=== PATIENT | female | born 1975 | race Caucasian/White ===

== ENCOUNTER 2016-08-06 14:02 | Emergency (ER) | payer MEDICAID, OTHER ==
[~2016-08-06] VITALS: Ht 175.3 cm; Wt 109.4 kg
[2016-08-06 14:05] VITALS: Ht 175.3 cm; Wt 109.4 kg
--- OUTSIDE RECORDS SUMMARY | 2016-08-06 14:08 | XMS REPORT ---
Author Author Jase Garnett Organization [employer] Address Unknown Phone Unavailable Care Team Providers Care Systems Development Manager Name Role Phone Jase Garnett CP Unavailable Allergies, Adverse Reactions, Alerts Substance Reaction Event Type Phenergan irritation, psych Drug Allergy Problems Problem Type Condition Code Onset Dates Condition Status Assessment Routine adult health maintenance Z00.00 Active Assessment Lumbago M54.5 Active Assessment Uncontrolled hypertension I10 Active Assessment Scabies B86 Active Medications Medication Code System Code Instructions Start Date End Date Status Dosage Premarin [facility] [address]-71 1.25 MG Orally daily 1 tab(s) Ibuprofen [facility] [address]-04 200 MG Orally every 6 hrs 1 tablet as needed Lisinopril [facility] [address]-58 20 mg Orally Once a day Jan 10, 2016 1 tablet Permethrin [facility] [address]-91 5 % Externally as directed Jan 10, 2016 Jan 12, 2016 as directed tylenol ND 0 Oral 1 tab Procedures Procedure Coding System Code Date CBC with diff CPT-4 68494 Jan 10, 2016 Hemoglobin A1C CPT-4 33130 Jan 10, 2016 Comp metabolic panel CPT-4 96235 Jan 10, 2016 TSH CPT-4 31813 Jan 10, 2016 Lipid panel CPT-4 61384 Jan 10, 2016 Office visit new level 3 CPT-4 81680 Jan 10, 2016 Vital Signs Date/Time: Jan 10, 2016 Height 68.25 in Weight 253.3 lbs Temperature 97.1 F Cardiac Monitoring Heart Rate 70 /min Blood Pressure Diastolic 90 mm Hg Blood Pressure Systolic 166 mm Hg BMI 38.23 Index Results No Known Results Summary Purpose [employer] Submission
--- OUTSIDE RECORDS SUMMARY | 2016-08-06 14:08 | XMS REPORT | Referral Summary ---
Author Author [facility] Organization [facility] Address Unknown Phone Unavailable Care Team Providers Care Fitness Teacher Name Role Phone No PCP, Pt States Primary Care Physician [phone] Encounter VC Date(s): 05/28/16 - 05/28/16 [facility] [address] [place] [address] Discharge Disposition: Against Medical Advice Attending Physician: Lew Roche MD Admitting Physician: Lew Roche MD Vital Signs Most recent to 1 oldest [Reference Range]: Temperature Oral 36.8 degC [35.8-37.3 degC] (05/28/16 6:31 AM) Peripheral Pulse 68 bpm Rate [60-100 bpm] (05/28/16 6:31 AM) Heart Rate Monitored 68 bpm [60-100 bpm] (05/28/16 5:24 AM) Respiratory Rate 10 br/min [14-20 br/min] *LOW* (05/28/16 6:51 AM) Blood Pressure 132/86 mmHg [90-140/60-90 mmHg] (05/28/16 6:31 AM) Mean Arterial 128 mmHg Pressure, Cuff (05/28/16 5:24 AM) SpO2 97 % (05/28/16 6:51 AM) Problem List Condition Effective Dates Status Health Status Informant Back pain(Confirmed) Active patient DDD (degenerative Active patient disc disease), lumbar(Confirmed) Sacral Active patient fracture(Confirmed) HTN Active patient (hypertension)(Confi rmed) Kidney Active patient stones(Confirmed) Obesity(Confirmed) Active patient Restless leg Active patient syndrome(Confirmed) Tobacco Active patient user(Confirmed) Allergies, Adverse Reactions, Alerts Substance Reaction Severity Status Phenergan Anxiety Mild Active Medications Premarin 1.25 mg oral tablet 1.25 mg 1 tabs, Oral, Daily, 0 Refill(s) Start Date: 05/28/16 Status: Ordered Results Hematology Most recent to 1 oldest [Reference Range]: WBC [4.8-10.8 7.4 10*3/uL 10*3/uL] (05/28/16 3:48 AM) RBC [4.00-5.20] 4.56 (05/28/16 3:48 AM) Hgb [12.0-16.0 14.4 gm/dL gm/dL] (05/28/16 3:48 AM) Hct [37.0-47.0 %] 43.0 % (05/28/16 3:48 AM) MCV [82.0-99.0 fL] 94.3 fL (05/28/16 3:48 AM) MCH [27.0-32.0 pg] 31.6 pg (05/28/16 3:48 AM) MCHC [32.0-36.0 33.5 gm/dL gm/dL] (05/28/16 3:48 AM) RDW [11.5-14.5 %] 12.3 % (05/28/16 3:48 AM) Platelet [150-400 231 10*3/uL 10*3/uL] (05/28/16 3:48 AM) MPV [9.4-12.4 fL] 11.9 fL (05/28/16 3:48 AM) Immature 0.3 % Granulocytes (05/28/16 3:48 AM) [0.0-1.0 %] Neutrophils [51-75 67 % %] (05/28/16 3:48 AM) Lymphocytes [20-46 25 % %] (05/28/16 3:48 AM) Monocytes [4-11 %] 6 % (05/28/16 3:48 AM) Eosinophils [0-4 %] 1 % (05/28/16 3:48 AM) Basophils [0-2 %] 0 % (05/28/16 3:48 AM) Neutro Absolute 4.91 [1.90-7.00] (05/28/16 3:48 AM) Lymph Absolute 1.85 [0.80-3.30] (05/28/16 3:48 AM) Wilson Absolute 0.46 [0.30-1.00] (05/28/16 3:48 AM) Eos Absolute 0.10 [0.00-0.50] (05/28/16 3:48 AM) Baso Absolute 0.03 [0.00-0.20] (05/28/16 3:48 AM) Nucleated RBC 0.0 /100 WBC Automated [0 /100 (05/28/16 3:48 AM) WBC] Chemistry Most recent to 1 oldest [Reference Range]: Sodium Lvl [136-144 138 mEq/L mEq/L] (05/28/16 3:48 AM) Potassium Lvl 3.9 mEq/L [3.6-5.1 mEq/L] (05/28/16 3:48 AM) Chloride [99-109 106 mEq/L mEq/L] (05/28/16 3:48 AM) CO2 [22-32 mEq/L] 23 mEq/L (05/28/16 3:48 AM) AGAP [3-20] 9 (05/28/16 3:48 AM) BUN [4-20 mg/dL] 13 mg/dL (05/28/16 3:48 AM) Glucose Lvl [70-100 101 mg/dL mg/dL] *HI* (05/28/16 3:48 AM) Creatinine Lvl 0.64 mg/dL [0.44-1.03 mg/dL] (05/28/16 3:48 AM) eGFR [>60] >60 1 (05/28/16 3:48 AM) Calcium Lvl 9.0 mg/dL [8.6-10.0 mg/dL] (05/28/16 3:48 AM) Albumin Lvl [3.5-4.8 3.4 gm/dL gm/dL] *LOW* (05/28/16 3:48 AM) Total Protein 6.3 gm/dL [6.1-7.9 gm/dL] (05/28/16 3:48 AM) Globulin [1.9-4.3 2.9 gm/dL gm/dL] (05/28/16 3:48 AM) ALT [14-54] - 2 (05/28/16 3:48 AM) AST [15-41 U/L] 19 U/L (05/28/16 3:48 AM) Alk Phos [26-104 76 U/L U/L] (05/28/16 3:48 AM) Bili Total [0.2-1.2] - 3 (05/28/16 3:48 AM) Troponin [<0.06 <0.05 ng/mL ng/mL] (05/28/16 3:48 AM) 1Result Comment: Multiply eGFR results by 1.21 for race. 2Result Comment: QNS, notified VASYL Zhang 05/28/2016 04:54 3Result Comment: QNS, notified VASYL Zhang 05/28/2016 04:54 Immunizations Given and Recorded Vaccine Date Status Refusal Reason influenza virus vaccine, live 04/07/13 Given pneumococcal 23-polyvalent vaccine 05/29/16 Given Procedures Procedure Date Related Diagnosis Body Site Carpal tunnel release Cholecystectomy Lithotripsy Tubal ligation Social History Social History Type Response Smoking Status Current every day smoker; Type: Cigarettes; Tobacco use per day: 1 Pack Assessment and Plan No data available for this section
--- OUTSIDE RECORDS SUMMARY | 2016-08-06 14:09 | XMS REPORT | Continuity of Care Document ---
Author Author [facility] Organization [facility] Address Unknown Phone Unavailable Allergies Active Description Code Type Severity Reaction Onset Reported/Identified Relationship to Patient Clinical Status Yes No Allergy Information Drug Allergy N/A N/A 04/06/2013 Yes Phenergan Drug Allergy N/A Adverse Reaction 04/07/2013 Yes promethazine HCl promethazine HCl Drug Allergy Unknown "GO CRAZY" 03/30/2015 Yes promethazine HCl promethazine HCl Drug Allergy Unknown "GO CRAZY" 03/30/2015 Yes promethazine HCl promethazine HCl Drug Allergy Moderate " GO CRAZY" 11/05/2015 Yes promethazine HCl promethazine HCl Drug Allergy Moderate " GO CRAZY" 11/05/2015 Yes promethazine promethazine Drug Allergy Moderate "go crazy" 11/09/2015 Yes promethazine promethazine Drug Allergy Moderate "go crazy" 11/09/2015 Medications Problems Date Dx Coded Attending Type Code Diagnosis Diagnosed By 01/26/2012 Keagan Saenz MDChin) Cecille Crowe 443.9 PERIPH VASCULAR DIS NOS 02/10/2012 Fausto Pitts DO Final 305.1 TOBACCO USE DISORDER 02/10/2012 Fausto Pitts DO Final 338.19 ACUTE PAIN NEC 02/10/2012 Fausto Pitts DO Final 338.29 CHRONIC PAIN NEC 02/10/2012 Fausto Pitts DO Final 724.2 LUMBAGO 02/10/2012 Fausto Pitts DO Admitting 959.19 TRUNK INJURY NEC 03/01/2012 Lloyd Grant DO Final 719.45 JOINT PAIN-PELVIS 03/01/2012 Lloyd Grant DO Final 729.5 PAIN IN LIMB 03/01/2012 Lloyd Grant DO 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 05/04/2012 Donovan Gonzalez MD Final 305.1 TOBACCO USE DISORDER 05/04/2012 Donovan Gonzalez MD Final 338.19 ACUTE PAIN NEC 05/04/2012 Donovan Gonzalez MD Admitting 719.45 JOINT PAIN-PELVIS 05/04/2012 Donovan Gonzalez MD Final 724.2 LUMBAGO 08/06/2012 hBavna KILGORE, Ruiz J F 272.4 HYPERLIPIDEMIA NEC/NOS 08/06/2012 Ruiz Huggins MD J F 305.1 TOBACCO USE DISORDER 08/06/2012 Wilson Huggins MDeb J F 530.81 ESOPHAGEAL REFLUX 08/06/2012 Ruiz Huggins MD J F 724.2 LUMBAGO 08/06/2012 Ruiz Huggins MD J A 786.50 CHEST PAIN NOS 08/06/2012 Ruiz Huggins MD J F 786.59 CHEST PAIN NEC 04/06/2013 Erin Potter MD Final 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 04/06/2013 Erin Potter MD Final 338.29 CHRONIC PAIN NEC 04/06/2013 Erin Potter MD Final 592.0 KIDNEY CALCULUS 04/06/2013 Erin Potter MD Final 620.9 NONINFL DIS OV/FALL NOS 04/06/2013 Erin Potter MD Final 724.2 LUMBAGO 04/06/2013 Erin Potter MD Final 789.09 ABDOMINAL PAIN-SITE NEC 04/06/2013 Erin Potter MD Final V04.81 INFLUENZA VACCINE 04/06/2013 Erin Potter MD Final V65.2 PERSON FEIGNING ILLNESS 09/14/2013 Denzel Ricardo MD Final 338.29 CHRONIC PAIN NEC 09/14/2013 Denzel Ricardo MD Final 401.9 HYPERTENSION NOS 09/14/2013 Denzel Ricardo MD Final 724.2 LUMBAGO 09/14/2013 Denzel Ricardo MD Admitting 724.5 BACKACHE NOS 09/14/2013 Denzel Ricardo MD Final V68.1 ISSUE REPEAT PRESCRIPT Procedures Results Test Result Range TROPONIN I BEDSIDE - 12/25/11 20:58 METHOD Bedside TROPONIN I < 0.04 ng/mL < 0.11 CHEM/HEM PROFILE-BEDSIDE - 12/25/11 21:00 POTASSIUM 4.1 mmol/L 3.5-5.3 METHOD Bedside ANION GAP 17 mmol/L 10-20 METHOD Bedside GLUCOSE 101 mg/dL 70-99 BLOOD UREA NITROGEN 7 mg/dL 7-20 CREATININE 0.8 mg/dL 0.6-1.0 HEMOGLOBIN 17.0 gm/dL 12.0-16.0 HEMATOCRIT 50.0 % 37.0-47.0 SODIUM 140 mmol/L 135-148 CHLORIDE 105 mmol/L 98-110 CARBON DIOXIDE 23 mmol/L 21-32 CALCIUM IONIZED 4.5 mg/dL 4.5-5.3 CBC W/DIFF - 12/25/11 21:10 EOSINOPHIL # 0.2 k/cumm 0.1-0.5 EOSINOPHIL % 2 % 2-4 GRANULOCYTE # 7.1 k/cumm 2.0-9.0 GRANULOCYTE % 69 % 50-75 LYMPHOCYTE # 2.4 k/cumm 1.0-4.0 LYMPHOCYTE % 24 % 20-30 MEAN CELL HGB 29.5 pg 27.0-33.0 MEAN CELL HGB CONCENTRATION 33.1 g/dl 32.0-36.0 MEAN CELL VOLUME 89.0 fl 80.0-100.0 MONOCYTE # 0.5 k/cumm 0.1-1.0 MONOCYTE % 5 % 4-6 RED BLOOD CELL 5.56 m/cumm 4.00-6.00 RED CELL DISTRIBUTION WIDTH 12.6 % 11.0- 15.6 WHITE BLOOD CELL 10.2 k/cumm 5.0-10.0 HEMOGLOBIN 16.4 gm/dL 12.0-16.0 HEMATOCRIT 49.5 % 37.0-47.0 PLATELET COUNT 289 k/cumm 150-450 D-DIMER QUANT - 12/25/11 21:10 D-DIMER QUANT 186 ng/mL 0-229 CBC - 08/06/12 20:40 MEAN CELL HGB 29.3 pg 27.0-33.0 MEAN CELL HGB CONCENTRATION 31.6 g/dl 32.0-36.0 MEAN CELL VOLUME 92.5 fl 80.0-100.0 RED BLOOD CELL 4.90 m/cumm 4.00-6.00 RED CELL DISTRIBUTION WIDTH 12.9 % 11.0- 15.6 WHITE BLOOD CELL 6.1 k/cumm 5.0-10.0 HEMOGLOBIN 14.4 gm/dL 12.0-16.0 HEMATOCRIT 45.4 % 37.0-47.0 PLATELET COUNT 228 k/cumm 150-450 METABOLIC PANEL, BASIC - 08/06/12 20:40 POTASSIUM 4.0 mmol/L 3.5-5.3 EST GFR (MDRD) > 60 mL/min > 59 ANION GAP 6 mmol/L 5-15 EST CrCl (CG) > 60 mL/min > 59 GLUCOSE 82 mg/dL 70-99 CALCIUM 8.5 mg/dL 8.5-10.1 BLOOD UREA NITROGEN 12 mg/dL 7-20 CREATININE 0.9 mg/dL 0.6-1.0 SODIUM 145 mmol/L 135-148 CHLORIDE 108 mmol/L 98-110 CARBON DIOXIDE 31 mmol/L 21-32 TROPONIN I BEDSIDE - 08/06/12 20:50 METHOD Bedside TROPONIN I < 0.04 ng/mL < 0.11 MRSA SURVEILLANCE SCREEN - 08/06/12 23:55 Uncategorized METABOLIC PANEL, COMPREHN - 08/07/12 02:05 POTASSIUM 3.8 mmol/L 3.5-5.3 EST GFR (MDRD) > 60 mL/min > 59 ANION GAP 7 mmol/L 5-15 EST CrCl (CG) > 60 mL/min > 59 GLUCOSE 89 mg/dL 70-99 CALCIUM 8.0 mg/dL 8.5-10.1 BLOOD UREA NITROGEN 13 mg/dL 7-20 CREATININE 0.8 mg/dL 0.6-1.0 SODIUM 142 mmol/L 135-148 CHLORIDE 108 mmol/L 98-110 AST/SGOT 11 Units/L 10-37 ALT/SGPT 19 Units/L < 66 CARBON DIOXIDE 27 mmol/L 21-32 TOTAL PROTEIN 6.2 gm/dL 6.4-8.2 ALBUMIN 3.2 gm/dL 3.4-5.0 BILI TOTAL 0.2 mg/dL 0.0-1.0 ALKALINE PHOSPHATASE TOTAL 69 Units/L 50- 136 CREATINE KINASE (CK/CPK) - 08/07/12 02:05 CREATINE KINASE (CK/CPK) 43 Units/L < 193 CK MB - 08/07/12 02:05 CK MB < 0.5 ng/mL < 4.0 MAGNESIUM - 08/07/12 02:05 MAGNESIUM 1.6 mg/dL 1.8-2.4 LIPID PANEL - 08/07/12 02:05 CHOLESTEROL/HDL RATIO 6.7 < 5.0 LDL CHOLESTEROL 153 mg/dL < 100 VLDL CHOLESTEROL 30 mg/dL < 30 TRIGLYCERIDES 150 mg/dL < 150 CHOLESTEROL 215 mg/dL < 200 HDL CHOLESTEROL 32 mg/dL > 39 CREATINE KINASE (CK/CPK) - 08/07/12 02:05 CREATINE KINASE (CK/CPK) 42 Units/L < 193 CK MB - 08/07/12 02:05 CK MB < 0.5 ng/mL < 4.0 TROPONIN I - 08/07/12 02:05 TROPONIN I < 0.02 ng/mL < 0.07 B-TYPE NATRIURETIC PEPTIDE - 08/07/12 02:05 B-TYPE NATRIURETIC PEPTIDE 9 pg/mL < 100 HEMOGLOBIN A1C - 08/07/12 02:05 HEMOGLOBIN A1C 5.7 % < 5.7 URINALYSIS, ROUTINE - 08/07/12 06:25 UA LEUKOCYTE ESTERASE DIPSTICK NEGATIVE NEGATIVE UA NITRITE DIPSTICK NEGATIVE NEGATIVE UA PROTEIN DIPSTICK NEGATIVE NEGATIVE UA GLUCOSE DIPSTICK NEGATIVE NEGATIVE UA KETONE DIPSTICK NEGATIVE NEGATIVE UA UROBILINOGEN DIPSTICK NORMAL NORMAL UA BILIRUBIN DIPSTICK NEGATIVE NEGATIVE UA BLOOD DIPSTICK NEGATIVE NEGATIVE UA VOLUME FOR EXAM 12.0 mL (12mL STD) UA SPECIFIC GRAVITY 1.022 1.015-1.025 UR PH 5.0 5.0-7.0 CREATINE KINASE (CK/CPK) - 08/07/12 09:32 CREATINE KINASE (CK/CPK) 52 Units/L < 193 CK MB - 08/07/12 09:32 CK MB < 0.5 ng/mL < 4.0 TROPONIN I - 08/07/12 09:32 TROPONIN I < 0.02 ng/mL < 0.07 CBC W/DIFF - 11/04/13 21:00 EOSINOPHIL # 0.1 k/cumm 0.1-0.5 EOSINOPHIL % 2 % 2-4 GRANULOCYTE # 4.4 k/cumm 2.0-9.0 GRANULOCYTE % 64 % 50-75 LYMPHOCYTE # 2.0 k/cumm 1.0-4.0 LYMPHOCYTE % 30 % 20-30 MEAN CELL HGB 30.1 pg 27.0-33.0 MEAN CELL HGB CONCENTRATION 33.0 g/dL 32.0-37.0 MEAN CELL VOLUME 91.0 fl 80.0-100.0 MONOCYTE # 0.4 k/cumm 0.1-1.0 MONOCYTE % 5 % 4-6 RED BLOOD CELL 5.02 m/cumm 4.00-6.00 RED CELL DISTRIBUTION WIDTH 12.7 % 11.0- 15.6 WHITE BLOOD CELL 6.9 k/cumm 5.0-10.0 HEMOGLOBIN 15.1 gm/dL 12.0-16.0 HEMATOCRIT 45.7 % 37.0-47.0 PLATELET COUNT 228 k/cumm 150-400 CHEM/HEM PROFILE-BEDSIDE - 11/04/13 21:10 POTASSIUM 3.7 mmol/L 3.5-5.3 METHOD Bedside ANION GAP 13 mmol/L 10-20 METHOD Bedside GLUCOSE 101 mg/dL 70-99 BLOOD UREA NITROGEN 8 mg/dL 7-20 CREATININE 0.8 mg/dL 0.6-1.0 HEMOGLOBIN 15.3 gm/dL 12.0-16.0 HEMATOCRIT 45.0 % 37.0-47.0 SODIUM 139 mmol/L 135-148 CHLORIDE 100 mmol/L 98-110 CARBON DIOXIDE 30 mmol/L 21-32 CALCIUM IONIZED 4.8 mg/dL 4.5-5.3 URINALYSIS, ROUTINE - 11/04/13 21:15 UA LEUKOCYTE ESTERASE DIPSTICK NEGATIVE NEGATIVE UA NITRITE DIPSTICK NEGATIVE NEGATIVE UA PROTEIN DIPSTICK NEGATIVE NEGATIVE UA GLUCOSE DIPSTICK NEGATIVE NEGATIVE UA KETONE DIPSTICK NEGATIVE NEGATIVE UA UROBILINOGEN DIPSTICK NORMAL NORMAL UA BILIRUBIN DIPSTICK NEGATIVE NEGATIVE UA BLOOD DIPSTICK TRACE NEGATIVE UA COMMENT UA SPECIFIC GRAVITY 1.010 1.015-1.025 UR PH 5.0 5.0-7.0 UR TEST - 11/04/13 21:15 UR TEST NEGATIVE NEGATIVE UA MICROSCOPIC - 11/04/13 21:15 UA BACTERIA 1+ NEGATIVE UA EPITHELIAL CELLS 3+ epi/hpf 0 - 1+ UA RBC 0-3 rbc/hpf 0 - 3 UA VOLUME FOR EXAM 12.0 mL (12mL STD) UA WBC 2-5 wbc/hpf 0 - 5 CBC W/DIFF - 04/16/14 22:35 COMMENT REVIEWED GRANULOCYTE # 8.7 k/cumm 2.0-9.0 GRANULOCYTE % 89 % 50-75 LYMPHOCYTE # 0.6 k/cumm 1.0-4.0 LYMPHOCYTE % 6 % 20-30 MEAN CELL HGB 28.9 pg 27.0-33.0 MEAN CELL HGB CONCENTRATION 32.4 g/dL 32.0-37.0 MEAN CELL VOLUME 89.2 fl 80.0-100.0 MONOCYTE # 0.5 k/cumm 0.1-1.0 MONOCYTE % 5 % 4-6 RED BLOOD CELL 5.82 m/cumm 4.00-6.00 RED CELL DISTRIBUTION WIDTH 13.3 % 11.0- 15.6 WHITE BLOOD CELL 9.8 k/cumm 5.0-10.0 HEMOGLOBIN 16.8 gm/dL 12.0-16.0 HEMATOCRIT 51.9 % 37.0-47.0 PLATELET COUNT 241 k/cumm 150-400 HEPATIC FUNCTION PANEL - 04/16/14 22:35 BILI UNCONJUGATED 0.9 mg/dL 0.0-0.7 AST/SGOT 12 Units/L 10-37 ALT/SGPT 18 Units/L < 66 TOTAL PROTEIN 8.6 gm/dL 6.4-8.2 ALBUMIN 4.3 gm/dL 3.4-5.0 BILI TOTAL 1.0 mg/dL 0.0-1.0 ALKALINE PHOSPHATASE TOTAL 92 IU/L 45- 117 BILI CONJUGATED 0.1 mg/dL 0.0-0.3 LIPASE - 04/16/14 22:35 LIPASE 122 Units/L 73-393 CHEM/HEM PROFILE-BEDSIDE - 04/16/14 22:37 POTASSIUM 4.2 mmol/L 3.5-5.3 METHOD Bedside ANION GAP 21 mmol/L 10-20 METHOD Bedside GLUCOSE 114 mg/dL 70-99 BLOOD UREA NITROGEN 18 mg/dL 7-20 CREATININE 0.9 mg/dL 0.6-1.0 HEMOGLOBIN 18.0 gm/dL 12.0-16.0 HEMATOCRIT 53.0 % 37.0-47.0 SODIUM 141 mmol/L 135-148 CHLORIDE 101 mmol/L 98-110 CARBON DIOXIDE 24 mmol/L 21-32 CALCIUM IONIZED 4.6 mg/dL 4.5-5.3 URINALYSIS, ROUTINE - 04/16/14 22:40 UA LEUKOCYTE ESTERASE DIPSTICK TRACE NEGATIVE UA NITRITE DIPSTICK NEGATIVE NEGATIVE UA PROTEIN DIPSTICK NEGATIVE NEGATIVE UA GLUCOSE DIPSTICK NEGATIVE NEGATIVE UA KETONE DIPSTICK NEGATIVE NEGATIVE UA UROBILINOGEN DIPSTICK 2+ NORMAL UA BILIRUBIN DIPSTICK POSITIVE NEGATIVE UA BLOOD DIPSTICK NEGATIVE NEGATIVE UA COMMENT UA SPECIFIC GRAVITY 1.020 1.015-1.025 UR PH 5.0 5.0-7.0 UR TEST - 04/16/14 22:40 UR TEST NEGATIVE NEGATIVE UA MICROSCOPIC - 04/16/14 22:40 UA BACTERIA 1+ NEGATIVE UA EPITHELIAL CELLS 4+ epi/hpf 0 - 1+ UA MUCUS 4+ NEG TO 1+ UA RBC 0-3 rbc/hpf 0 - 3 UA VOLUME FOR EXAM 12.0 mL (12mL STD) UA WBC 0-1 wbc/hpf 0 - 5 URINALYSIS, ROUTINE - 03/07/15 23:40 UA LEUKOCYTE ESTERASE DIPSTICK NEGATIVE NEGATIVE UA NITRITE DIPSTICK NEGATIVE NEGATIVE UA PROTEIN DIPSTICK NEGATIVE NEGATIVE UA GLUCOSE DIPSTICK NEGATIVE NEGATIVE UA KETONE DIPSTICK NEGATIVE NEGATIVE UA UROBILINOGEN DIPSTICK NORMAL NORMAL UA BILIRUBIN DIPSTICK NEGATIVE NEGATIVE UA BLOOD DIPSTICK NEGATIVE NEGATIVE UA SPECIFIC GRAVITY 1.005 1.015-1.025 UR PH 6.5 5.0-7.0 UR DRUGS OF ABUSE SCREEN - 03/07/15 23:40 UR AMPHETAMINES SCREEN NEG (<1000 ng/mL) NEGATIVE UR BARBITURATE SCREEN POS (> 200 ng/mL) NEGATIVE DRUGS OF ABUSE SCREEN COMMENT UR OPIATES SCREEN NEG (< 300 ng/mL) NEGATIVE UR PHENCYCLIDINE (PCP) SCREEN NEG (< 25 ng/mL) NEGATIVE UR CANNABINOIDS (THC) SCREEN NEG (< 50 ng/mL) NEGATIVE UR COCAINE METABOLITE SCREEN NEG (< 300 ng/mL) NEGATIVE UR METHADONE SCREEN NEG (< 300 ng/mL) NEGATIVE UR BENZODIAZEPINE SCREEN NEG (< 200 ng/mL) NEGATIVE URINALYSIS, ROUTINE - 03/21/15 04:31 UA LEUKOCYTE ESTERASE DIPSTICK TRACE NEGATIVE UA NITRITE DIPSTICK NEGATIVE NEGATIVE UA PROTEIN DIPSTICK 1+ NEGATIVE UA GLUCOSE DIPSTICK NEGATIVE NEGATIVE UA KETONE DIPSTICK NEGATIVE NEGATIVE UA UROBILINOGEN DIPSTICK NORMAL NORMAL UA BILIRUBIN DIPSTICK NEGATIVE NEGATIVE UA BLOOD DIPSTICK NEGATIVE NEGATIVE UA SPECIFIC GRAVITY >=1.030 1.015-1.025 UR PH 6.0 5.0-7.0 UA MICROSCOPIC - 03/21/15 04:31 UA BACTERIA 1+ NEGATIVE UA EPITHELIAL CELLS 2+ epi/hpf 0 - 1+ UA MUCUS 4+ NEG TO 1+ UA RBC 3-5 rbc/hpf 0 - 3 UA VOLUME FOR EXAM 12.0 mL (12mL STD) UA WBC 5-10 wbc/hpf 0 - 5 UR TEST - 03/21/15 04:33 UR TEST NEGATIVE NEGATIVE CHEM/HEM PROFILE-BEDSIDE - 03/21/15 05:12 POTASSIUM 3.8 mmol/L 3.5-5.3 METHOD Bedside ANION GAP 19 mmol/L 10-20 METHOD Bedside GLUCOSE 124 mg/dL 70-99 BLOOD UREA NITROGEN 11 mg/dL 7-20 CREATININE 0.7 mg/dL 0.6-1.0 HEMOGLOBIN 14.3 gm/dL 12.0-16.0 HEMATOCRIT 42.0 % 37.0-47.0 SODIUM 144 mmol/L 135-148 CHLORIDE 108 mmol/L 98-110 CARBON DIOXIDE 22 mmol/L 21-32 CALCIUM IONIZED 4.8 mg/dL 4.5-5.3 URINALYSIS, ROUTINE - 05/10/15 02:47 UA LEUKOCYTE ESTERASE DIPSTICK NEGATIVE NEGATIVE UA NITRITE DIPSTICK NEGATIVE NEGATIVE UA PROTEIN DIPSTICK NEGATIVE NEGATIVE UA GLUCOSE DIPSTICK NEGATIVE NEGATIVE UA KETONE DIPSTICK NEGATIVE NEGATIVE UA UROBILINOGEN DIPSTICK NORMAL NORMAL UA BILIRUBIN DIPSTICK NEGATIVE NEGATIVE UA BLOOD DIPSTICK NEGATIVE NEGATIVE UA SPECIFIC GRAVITY 1.020 1.015-1.025 UR PH 7.0 5.0-7.0 UR TEST - 05/10/15 02:49 UR TEST NEGATIVE NEGATIVE CHEM/HEM PROFILE-BEDSIDE - 05/10/15 02:57 POTASSIUM 4.1 mmol/L 3.5-5.3 METHOD Bedside ANION GAP 19 mmol/L 10-20 METHOD Bedside GLUCOSE 112 mg/dL 70-99 BLOOD UREA NITROGEN 10 mg/dL 7-20 CREATININE 0.9 mg/dL 0.6-1.0 HEMOGLOBIN 14.3 gm/dL 12.0-16.0 HEMATOCRIT 42.0 % 37.0-47.0 SODIUM 144 mmol/L 135-148 CHLORIDE 107 mmol/L 98-110 CARBON DIOXIDE 24 mmol/L 21-32 CALCIUM IONIZED 4.7 mg/dL 4.5-5.3 CBC W/DIFF - 05/10/15 03:00 BASOPHIL # 0.0 k/cumm 0.0-0.2 BASOPHIL % 1 % 0-1 EOSINOPHIL # 0.1 k/cumm 0.1-0.5 EOSINOPHIL % 1 % 2-4 GRANULOCYTE # 5.5 k/cumm 2.0-9.0 GRANULOCYTE % 67 % 50-75 LYMPHOCYTE # 2.0 k/cumm 1.0-4.0 LYMPHOCYTE % 24 % 20-30 MEAN CELL HGB 29.4 pg 27.0-33.0 MEAN CELL HGB CONCENTRATION 32.6 g/dL 32.0-37.0 MEAN CELL VOLUME 90.1 fl 80.0-100.0 MONOCYTE # 0.6 k/cumm 0.1-1.0 MONOCYTE % 7 % 4-6 RED BLOOD CELL 4.86 m/cumm 4.00-6.00 RED CELL DISTRIBUTION WIDTH 12.7 % 11.0- 15.6 WHITE BLOOD CELL 8.2 k/cumm 5.0-10.0 HEMOGLOBIN 14.3 gm/dL 12.0-16.0 HEMATOCRIT 43.8 % 37.0-47.0 PLATELET COUNT 208 k/cumm 150-400 HEPATIC FUNCTION PANEL - 05/10/15 03:00 BILI UNCONJUGATED 0.1 mg/dL 0.0-0.7 AST/SGOT 9 Units/L 10-37 ALT/SGPT 22 Units/L < 66 TOTAL PROTEIN 6.9 gm/dL 6.4-8.2 ALBUMIN 3.3 gm/dL 3.4-5.0 BILI TOTAL 0.2 mg/dL 0.0-1.0 ALKALINE PHOSPHATASE TOTAL 89 IU/L 45- 117 BILI CONJUGATED < 0.1 mg/dL 0.0-0.3 LIPASE - 05/10/15 03:00 LIPASE 221 Units/L 73-393 URINALYSIS, ROUTINE - 08/01/15 21:44 UA LEUKOCYTE ESTERASE DIPSTICK NEGATIVE NEGATIVE UA NITRITE DIPSTICK NEGATIVE NEGATIVE UA PROTEIN DIPSTICK NEGATIVE NEGATIVE UA GLUCOSE DIPSTICK NEGATIVE NEGATIVE UA KETONE DIPSTICK NEGATIVE NEGATIVE UA UROBILINOGEN DIPSTICK NORMAL NORMAL UA BILIRUBIN DIPSTICK NEGATIVE NEGATIVE UA BLOOD DIPSTICK NEGATIVE NEGATIVE UA SPECIFIC GRAVITY 1.015 1.015-1.025 UR PH 7.0 5.0-7.0 UR TEST - 08/01/15 21:46 UR TEST NEGATIVE NEGATIVE CBC W/DIFF - 08/01/15 21:50 BASOPHIL # 0.0 k/cumm 0.0-0.2 BASOPHIL % 1 % 0-1 EOSINOPHIL # 0.1 k/cumm 0.1-0.5 EOSINOPHIL % 2 % 2-4 GRANULOCYTE # 5.8 k/cumm 2.0-9.0 GRANULOCYTE % 70 % 50-75 LYMPHOCYTE # 1.8 k/cumm 1.0-4.0 LYMPHOCYTE % 22 % 20-30 MEAN CELL HGB 30.1 pg 27.0-33.0 MEAN CELL HGB CONCENTRATION 33.9 g/dL 32.0-37.0 MEAN CELL VOLUME 89.0 fl 80.0-100.0 MONOCYTE # 0.4 k/cumm 0.1-1.0 MONOCYTE % 5 % 4-6 RED BLOOD CELL 5.01 m/cumm 4.00-6.00 RED CELL DISTRIBUTION WIDTH 12.9 % 11.0- 15.6 WHITE BLOOD CELL 8.2 k/cumm 5.0-10.0 HEMOGLOBIN 15.1 gm/dL 12.0-16.0 HEMATOCRIT 44.6 % 37.0-47.0 PLATELET COUNT 229 k/cumm 150-400 CHEM/HEM PROFILE-BEDSIDE - 08/01/15 21:55 POTASSIUM 3.8 mmol/L 3.5-5.3 METHOD Bedside ANION GAP 21 mmol/L 10-20 METHOD Bedside GLUCOSE 110 mg/dL 70-99 BLOOD UREA NITROGEN 5 mg/dL 7-20 CREATININE 0.7 mg/dL 0.6-1.0 HEMOGLOBIN 16.0 gm/dL 12.0-16.0 HEMATOCRIT 47.0 % 37.0-47.0 SODIUM 141 mmol/L 135-148 CHLORIDE 103 mmol/L 98-110 CARBON DIOXIDE 22 mmol/L 21-32 CALCIUM IONIZED 4.6 mg/dL 4.5-5.3 LACTIC ACID - 08/02/15 22:16 LACTIC ACID 1.3 mmol/L 0.5-2.0 CBC W/DIFF - 08/02/15 22:16 BASOPHIL # 0.1 k/cumm 0.0-0.2 BASOPHIL % 1 % 0-1 EOSINOPHIL # 0.2 k/cumm 0.1-0.5 EOSINOPHIL % 2 % 2-4 GRANULOCYTE # 4.2 k/cumm 2.0-9.0 GRANULOCYTE % 61 % 50-75 LYMPHOCYTE # 2.0 k/cumm 1.0-4.0 LYMPHOCYTE % 28 % 20-30 MEAN CELL HGB 30.2 pg 27.0-33.0 MEAN CELL HGB CONCENTRATION 33.3 g/dL 32.0-37.0 MEAN CELL VOLUME 90.5 fl 80.0-100.0 MONOCYTE # 0.5 k/cumm 0.1-1.0 MONOCYTE % 7 % 4-6 RED BLOOD CELL 4.74 m/cumm 4.00-6.00 RED CELL DISTRIBUTION WIDTH 13.0 % 11.0- 15.6 WHITE BLOOD CELL 6.9 k/cumm 5.0-10.0 HEMOGLOBIN 14.3 gm/dL 12.0-16.0 HEMATOCRIT 42.9 % 37.0-47.0 PLATELET COUNT 227 k/cumm 150-400 METABOLIC PANEL, COMPREHN - 08/02/15 22:16 POTASSIUM 4.0 mmol/L 3.5-5.3 EST GFR (MDRD) > 60 mL/min > 59 ANION GAP 9 mmol/L 5-15 EST CrCl (CG) > 60 mL/min > 59 GLUCOSE 90 mg/dL 70-99 CALCIUM 8.5 mg/dL 8.5-10.1 BLOOD UREA NITROGEN 8 mg/dL 7-20 CREATININE 0.7 mg/dL 0.6-1.0 SODIUM 143 mmol/L 135-148 CHLORIDE 107 mmol/L 98-110 AST/SGOT 13 Units/L 10-37 ALT/SGPT 23 Units/L < 66 CARBON DIOXIDE 27 mmol/L 21-32 TOTAL PROTEIN 6.7 gm/dL 6.4-8.2 ALBUMIN 3.4 gm/dL 3.4-5.0 BILI TOTAL 0.3 mg/dL 0.0-1.0 ALKALINE PHOSPHATASE TOTAL 89 IU/L 45- 117 AMYLASE - 08/02/15 22:16 AMYLASE 39 Units/L 25-115 LIPASE - 08/02/15 22:16 LIPASE 137 Units/L 73-393 URINALYSIS, ROUTINE - 08/02/15 23:04 UA LEUKOCYTE ESTERASE DIPSTICK NEGATIVE NEGATIVE UA NITRITE DIPSTICK NEGATIVE NEGATIVE UA PROTEIN DIPSTICK NEGATIVE NEGATIVE UA GLUCOSE DIPSTICK NEGATIVE NEGATIVE UA KETONE DIPSTICK NEGATIVE NEGATIVE UA UROBILINOGEN DIPSTICK NORMAL NORMAL UA BILIRUBIN DIPSTICK NEGATIVE NEGATIVE UA BLOOD DIPSTICK NEGATIVE NEGATIVE UA SPECIFIC GRAVITY 1.020 1.015-1.025 UR PH 6.0 5.0-7.0 UR TEST - 08/02/15 23:06 UR TEST NEGATIVE NEGATIVE URINALYSIS, ROUTINE - 08/11/15 11:45 UA LEUKOCYTE ESTERASE DIPSTICK NEGATIVE NEGATIVE UA NITRITE DIPSTICK NEGATIVE NEGATIVE UA PROTEIN DIPSTICK NEGATIVE NEGATIVE UA GLUCOSE DIPSTICK NEGATIVE NEGATIVE UA KETONE DIPSTICK NEGATIVE NEGATIVE UA UROBILINOGEN DIPSTICK NORMAL NORMAL UA BILIRUBIN DIPSTICK NEGATIVE NEGATIVE UA BLOOD DIPSTICK NEGATIVE NEGATIVE UA SPECIFIC GRAVITY 1.020 1.015-1.025 UR PH 6.0 5.0-7.0 UR TEST - 08/11/15 11:47 UR TEST NEGATIVE NEGATIVE URINALYSIS, ROUTINE - 08/13/15 07:31 UA LEUKOCYTE ESTERASE DIPSTICK NEGATIVE NEGATIVE UA NITRITE DIPSTICK NEGATIVE NEGATIVE UA PROTEIN DIPSTICK NEGATIVE NEGATIVE UA GLUCOSE DIPSTICK NEGATIVE NEGATIVE UA KETONE DIPSTICK NEGATIVE NEGATIVE UA UROBILINOGEN DIPSTICK NORMAL NORMAL UA BILIRUBIN DIPSTICK NEGATIVE NEGATIVE UA BLOOD DIPSTICK NEGATIVE NEGATIVE UA SPECIFIC GRAVITY <=1.005 1.015-1.025 UR PH 6.0 5.0-7.0 UR TEST - 08/13/15 07:34 UR TEST NEGATIVE NEGATIVE HEMOGLOBIN - 11/05/15 11:58 MEAN CELL VOLUME 90.0 fl 80.0-100.0 HEMOGLOBIN 14.9 gm/dL 12.0-16.0 METABOLIC PANEL, COMPREHN - 11/05/15 11:58 POTASSIUM 3.6 mmol/L 3.5-5.3 EST GFR (MDRD) > 60 mL/min > 59 ANION GAP 6 mmol/L 5-15 GLUCOSE 81 mg/dL 70-99 CALCIUM 8.7 mg/dL 8.5-10.1 BLOOD UREA NITROGEN 14 mg/dL 7-20 CREATININE 0.8 mg/dL 0.6-1.0 SODIUM 138 mmol/L 135-148 CHLORIDE 105 mmol/L 98-110 AST/SGOT 12 Units/L 10-37 ALT/SGPT 21 Units/L < 66 CARBON DIOXIDE 27 mmol/L 21-32 TOTAL PROTEIN 7.0 gm/dL 6.4-8.2 ALBUMIN 3.4 gm/dL 3.4-5.0 BILI TOTAL 0.3 mg/dL 0.0-1.0 ALKALINE PHOSPHATASE TOTAL 68 IU/L 45- 117 CBC - 11/05/15 11:58 MEAN CELL HGB 30.7 pg 27.0-33.0 MEAN CELL HGB CONCENTRATION 34.1 g/dL 32.0-37.0 MEAN CELL VOLUME 90.1 fl 80.0-100.0 RED BLOOD CELL 4.85 m/cumm 4.00-6.00 RED CELL DISTRIBUTION WIDTH 12.6 % 11.0- 15.6 WHITE BLOOD CELL 6.5 k/cumm 5.0-10.0 HEMOGLOBIN 14.9 gm/dL 12.0-16.0 HEMATOCRIT 43.7 % 37.0-47.0 PLATELET COUNT 216 k/cumm 150-400 TEST, SERUM - 11/09/15 05:55 TEST, SERUM NEGATIVE NEGATIVE URINALYSIS, ROUTINE - 12/08/15 18:14 UA LEUKOCYTE ESTERASE DIPSTICK NEGATIVE NEGATIVE UA NITRITE DIPSTICK NEGATIVE NEGATIVE UA PROTEIN DIPSTICK NEGATIVE NEGATIVE UA GLUCOSE DIPSTICK NEGATIVE NEGATIVE UA KETONE DIPSTICK NEGATIVE NEGATIVE UA UROBILINOGEN DIPSTICK NORMAL NORMAL UA BILIRUBIN DIPSTICK NEGATIVE NEGATIVE UA BLOOD DIPSTICK TRACE NEGATIVE UA SPECIFIC GRAVITY 1.022 1.015-1.025 UR PH 7.0 5.0-7.0 UA MICROSCOPIC - 12/08/15 18:14 UA BACTERIA 1+ NEGATIVE UA EPITHELIAL CELLS 2+ epi/hpf 0 - 1+ UA MUCUS 1+ NEG TO 1+ UA RBC 0-3 rbc/hpf 0 - 3 UA VOLUME FOR EXAM 12.0 mL (12mL STD) UA WBC 0-1 wbc/hpf 0 - 5 URINALYSIS, ROUTINE - 12/27/15 15:00 UA LEUKOCYTE ESTERASE DIPSTICK TRACE NEGATIVE UA NITRITE DIPSTICK NEGATIVE NEGATIVE UA PROTEIN DIPSTICK 1+ NEGATIVE UA GLUCOSE DIPSTICK NEGATIVE NEGATIVE UA KETONE DIPSTICK NEGATIVE NEGATIVE UA UROBILINOGEN DIPSTICK NORMAL NORMAL UA BILIRUBIN DIPSTICK 1+ NEGATIVE UA BLOOD DIPSTICK 3+ NEGATIVE UA SPECIFIC GRAVITY >=1.030 1.015-1.025 UR PH 6.0 5.0-7.0 UA MICROSCOPIC - 12/27/15 15:00 UA BACTERIA 2+ NEGATIVE UA EPITHELIAL CELLS 2+ epi/hpf 0 - 1+ UA MUCUS 2+ NEG TO 1+ UA RBC 20-50 rbc/hpf 0 - 3 UA VOLUME FOR EXAM 12.0 mL (12mL STD) UA WBC 20-50 wbc/hpf 0 - 5 URINE CULTURE - 12/27/15 15:00 Microbiology CBC W/DIFF - 12/27/15 15:35 BASOPHIL # 0.0 k/cumm 0.0-0.2 BASOPHIL % 1 % 0-1 EOSINOPHIL # 0.2 k/cumm 0.1-0.5 EOSINOPHIL % 3 % 2-4 GRANULOCYTE # 4.5 k/cumm 2.0-9.0 GRANULOCYTE % 63 % 50-75 LYMPHOCYTE # 1.8 k/cumm 1.0-4.0 LYMPHOCYTE % 26 % 20-30 MEAN CELL HGB 30.3 pg 27.0-33.0 MEAN CELL HGB CONCENTRATION 33.7 g/dL 32.0-37.0 MEAN CELL VOLUME 89.9 fl 80.0-100.0 MONOCYTE # 0.6 k/cumm 0.1-1.0 MONOCYTE % 8 % 4-6 RED BLOOD CELL 4.85 m/cumm 4.00-6.00 RED CELL DISTRIBUTION WIDTH 13.0 % 11.0- 15.6 WHITE BLOOD CELL 7.1 k/cumm 5.0-10.0 HEMOGLOBIN 14.7 gm/dL 12.0-16.0 HEMATOCRIT 43.6 % 37.0-47.0 PLATELET COUNT 215 k/cumm 150-400 METABOLIC PANEL, COMPREHN - 12/27/15 15:35 POTASSIUM 4.3 mmol/L 3.5-5.3 EST GFR (MDRD) > 60 mL/min > 59 ANION GAP 9 mmol/L 5-15 EST CrCl (CG) > 60 mL/min > 59 GLUCOSE 118 mg/dL 70-99 CALCIUM 8.9 mg/dL 8.5-10.1 BLOOD UREA NITROGEN 10 mg/dL 7-20 CREATININE 0.8 mg/dL 0.6-1.0 SODIUM 139 mmol/L 135-148 CHLORIDE 104 mmol/L 98-110 AST/SGOT 17 Units/L 10-37 ALT/SGPT 15 Units/L < 66 CARBON DIOXIDE 26 mmol/L 21-32 TOTAL PROTEIN 7.2 gm/dL 6.4-8.2 ALBUMIN 3.3 gm/dL 3.4-5.0 BILI TOTAL 0.3 mg/dL 0.0-1.0 ALKALINE PHOSPHATASE TOTAL 85 IU/L 45- 117 URINALYSIS, ROUTINE - 01/08/16 10:33 UA LEUKOCYTE ESTERASE DIPSTICK NEGATIVE NEGATIVE UA NITRITE DIPSTICK NEGATIVE NEGATIVE UA PROTEIN DIPSTICK NEGATIVE NEGATIVE UA GLUCOSE DIPSTICK NEGATIVE NEGATIVE UA KETONE DIPSTICK NEGATIVE NEGATIVE UA UROBILINOGEN DIPSTICK NORMAL NORMAL UA BILIRUBIN DIPSTICK NEGATIVE NEGATIVE UA BLOOD DIPSTICK NEGATIVE NEGATIVE UA SPECIFIC GRAVITY 1.020 1.015-1.025 UR PH 5.5 5.0-7.0 UR TEST - 05/15/16 12:50 UR TEST NEGATIVE NEGATIVE URINALYSIS, ROUTINE - 05/15/16 12:50 UA LEUKOCYTE ESTERASE DIPSTICK NEGATIVE NEGATIVE UA NITRITE DIPSTICK NEGATIVE NEGATIVE UA PROTEIN DIPSTICK NEGATIVE NEGATIVE UA GLUCOSE DIPSTICK NEGATIVE NEGATIVE UA KETONE DIPSTICK NEGATIVE NEGATIVE UA UROBILINOGEN DIPSTICK NORMAL NORMAL UA BILIRUBIN DIPSTICK NEGATIVE NEGATIVE UA BLOOD DIPSTICK NEGATIVE NEGATIVE UA SPECIFIC GRAVITY 1.015 1.015-1.025 UR PH 7.5 5.0-7.0 URINALYSIS, ROUTINE - 05/27/16 23:23 UA LEUKOCYTE ESTERASE DIPSTICK NEGATIVE NEGATIVE UA NITRITE DIPSTICK NEGATIVE NEGATIVE UA PROTEIN DIPSTICK NEGATIVE NEGATIVE UA GLUCOSE DIPSTICK NEGATIVE NEGATIVE UA KETONE DIPSTICK NEGATIVE NEGATIVE UA UROBILINOGEN DIPSTICK NORMAL NORMAL UA BILIRUBIN DIPSTICK NEGATIVE NEGATIVE UA BLOOD DIPSTICK NEGATIVE NEGATIVE UA SPECIFIC GRAVITY 1.019 1.015-1.025 UR PH 6.0 5.0-7.0 Encounters ACCT No. Visit Date/Time Discharge Status Pt. Type Provider Facility Loc./Unit Complaint [id number] 09/14/2013 16:25:00 2013 18:07:00 DIS Emergency Davion KILGORE, [facility] on [facility] [id number] 04/06/2013 18:45:00 2012 17:45:00 [facility] [id number] 05/04/2012 19:10:00 2011 19:58:00 DIS Emergency Carlos KILGORE, Donovan Schulz [facility] on [facility] [id number] 03/01/2012 09:54:00 2011 23:59:59 CLS Outpatient Lloyd Grant DO [facility] on [facility] SANCHEZ [id number] 02/10/2012 21:23:00 2011 22:30:00 DIS Emergency Fausto Pitts DO [facility] on [facility]
--- OUTSIDE RECORDS SUMMARY | 2016-08-06 14:09 | XMS REPORT | Referral Summary ---
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 Phone No PCP, Pt States Primary Care Physician [phone] Encounter VC Date(s): 05/28/16 - 05/30/16 [facility] [address] [place] [address] Discharge Disposition: 01-Home or Self Care Attending Physician: Anabell Graham DO Admitting Physician: Baldomero Evans MD Vital Signs Most recent to 1 oldest [Reference Range]: Temperature Oral 36.7 degC [35.8-37.3 degC] (05/30/16 8:00 AM) Peripheral Pulse 58 bpm Rate [60-100 bpm] *LOW* (05/30/16 8:00 AM) Heart Rate Monitored 65 bpm [60-100 bpm] (05/28/16 11:26 PM) Respiratory Rate 16 br/min [14-20 br/min] (05/30/16 8:00 AM) Blood Pressure 120/84 mmHg [90-140/60-90 mmHg] (05/30/16 8:00 AM) Mean Arterial 104 mmHg Pressure, Cuff (05/28/16 11:26 PM) SpO2 92 % (05/30/16 8:00 AM) Remote Telemetry Ongoing (05/30/16 2:26 AM) Problem List Condition Effective Dates Status Health Status Informant Acute Active pain(Confirmed) Back pain(Confirmed) Active patient DDD (degenerative Active patient disc disease), lumbar(Confirmed) Sacral Active patient fracture(Confirmed) HTN Active patient (hypertension)(Confi rmed) Kidney Active patient stones(Confirmed) Obesity(Confirmed) Active patient Restless leg Active patient syndrome(Confirmed) Tobacco Active patient user(Confirmed) Allergies, Adverse Reactions, Alerts Substance Reaction Severity Status Phenergan Anxiety Mild Active Medications aspirin 81 mg oral delayed release tablet 81 mg 1 tabs, Oral, Daily, # 30 tabs, 0 Refill(s) Start Date: 05/30/16 Status: Ordered Lipitor 20 mg oral tablet 20 mg 1 tabs, Oral, Daily, # 30 tabs, 0 Refill(s) Start Date: 05/30/16 Status: Ordered Premarin 1.25 mg oral tablet 1.25 mg 1 tabs, Oral, Daily, 0 Refill(s) Start Date: 05/28/16 Status: Ordered Protonix 40 mg oral delayed release tablet 40 mg 1 tabs, Oral, Before Breakfast, # 30 tabs, 0 Refill(s) Start Date: 05/30/16 Status: Ordered Results Hematology Most recent to 1 oldest [Reference Range]: WBC [4.8-10.8 5.8 10*3/uL 10*3/uL] (05/30/16 5:01 AM) RBC [4.00-5.20] 4.30 (05/30/16 5:01 AM) Hgb [12.0-16.0 13.0 gm/dL gm/dL] (05/30/16 5:01 AM) Hct [37.0-47.0 %] 41.4 % (05/30/16 5:01 AM) MCV [82.0-99.0 fL] 96.3 fL (05/30/16 5:01 AM) MCH [27.0-32.0 pg] 30.2 pg (05/30/16 5:01 AM) MCHC [32.0-36.0 31.4 gm/dL gm/dL] *LOW* (05/30/16 5:01 AM) RDW [11.5-14.5 %] 12.5 % (05/30/16 5:01 AM) Platelet [150-400 229 10*3/uL 10*3/uL] (05/30/16 5:01 AM) MPV [9.4-12.4 fL] 11.8 fL (05/30/16 5:01 AM) Immature 0.1 % Granulocytes (05/29/16 1:40 AM) [0.0-1.0 %] Neutrophils [51-75 60 % %] (05/29/16 1:40 AM) Lymphocytes [20-46 33 % %] (05/29/16 1:40 AM) Monocytes [4-11 %] 5 % (05/29/16 1:40 AM) Eosinophils [0-4 %] 2 % (05/29/16 1:40 AM) Basophils [0-2 %] 0 % (05/29/16 1:40 AM) Neutro Absolute 4.33 [1.90-7.00] (05/29/16 1:40 AM) Lymph Absolute 2.39 [0.80-3.30] (05/29/16 1:40 AM) [place] Absolute 0.37 [0.30-1.00] (05/29/16 1:40 AM) Eos Absolute 0.15 [0.00-0.50] (05/29/16 1:40 AM) Baso Absolute 0.02 [0.00-0.20] (05/29/16 1:40 AM) Nucleated RBC 0.0 /100 WBC Automated [0 /100 (05/29/16 1:40 AM) WBC] Coagulation Most recent to 1 oldest [Reference Range]: D-Dimer [0-600 441 ng{FEU}/mL 1 ng{FEU}/mL] (05/29/16 5:12 PM) 1Result Comment: A D Dimer result of <500 ng/mL FEU has a negative predictive value of approximately 100% for the exclusion of DVT and acute PE. Chemistry Most recent to 1 oldest [Reference Range]: Sodium Lvl [136-144 140 mEq/L mEq/L] (05/30/16 5:01 AM) Potassium Lvl 3.9 mEq/L [3.6-5.1 mEq/L] (05/30/16 5:01 AM) Chloride [99-109 107 mEq/L mEq/L] (05/30/16 5:01 AM) CO2 [22-32 mEq/L] 26 mEq/L (05/30/16 5:01 AM) AGAP [3-20] 7 (05/30/16 5:01 AM) BUN [4-20 mg/dL] 21 mg/dL *HI* (05/30/16 5:01 AM) Glucose Lvl [70-100 95 mg/dL mg/dL] (05/30/16 5:01 AM) Creatinine Lvl 0.78 mg/dL [0.44-1.03 mg/dL] (05/30/16 5:01 AM) eGFR [>60] >60 1 (05/30/16 5:01 AM) Calcium Lvl 8.6 mg/dL [8.6-10.0 mg/dL] (05/30/16 5:01 AM) Albumin Lvl [3.5-4.8 3.0 gm/dL gm/dL] *LOW* (05/29/16 1:40 AM) Total Protein 5.7 gm/dL [6.1-7.9 gm/dL] *LOW* (05/29/16 1:40 AM) Globulin [1.9-4.3 2.7 gm/dL gm/dL] (05/29/16 1:40 AM) ALT [14-54 U/L] 15 U/L (05/29/16 1:40 AM) AST [15-41 U/L] 14 U/L *LOW* (05/29/16 1:40 AM) Alk Phos [26-104 69 U/L U/L] (05/29/16 1:40 AM) Bili Total [0.2-1.2 0.6 mg/dL 2 mg/dL] (05/29/16 1:40 AM) Magnesium Lvl 1.9 mg/dL [1.8-2.5 mg/dL] (05/30/16 5:01 AM) Troponin [<0.06 <0.05 ng/mL ng/mL] (05/29/16 6:04 AM) Chol [0-200 mg/dL] 248 mg/dL *HI* (05/29/16 6:04 AM) Trig [0-150 mg/dL] 315 mg/dL *HI* (05/29/16 6:04 AM) HDL [>40 mg/dL] 35 mg/dL *ABN* (05/29/16 6:04 AM) LDL [0-100 mg/dL] 150 mg/dL *HI* (05/29/16 6:04 AM) VLDL Cholesterol 63 mg/dL [0-30 mg/dL] *HI* (05/29/16 6:04 AM) Cardiac Risk 7.1 [0.0-5.0] *HI* (05/29/16 6:04 AM) Hep A IgM Negative (05/30/16 5:01 AM) Hep Bs Ag Negative (05/30/16 5:01 AM) Hep C Ab Negative (05/30/16 5:01 AM) Hep B Core IgM Negative (05/30/16 5:01 AM) 1Result Comment: Multiply eGFR results by 1.21 for race. 2Result Comment: Naproxen, specifically the metabolite O-desmethylnaproxen, may cause spurious elevation in Total Bilirubin levels. Immunizations Given and Recorded Vaccine Date Status Refusal Reason influenza virus vaccine, inactivated 05/29/16 Given influenza virus vaccine, live 04/07/13 Given pneumococcal 23-polyvalent vaccine 05/29/16 Given Procedures Procedure Date Related Diagnosis Body Site Carpal tunnel release Cholecystectomy Lithotripsy Tubal ligation Social History Social History Type Response Smoking Status Current every day smoker; Type: Cigarettes; Tobacco use per day: 1 Pack Assessment and Plan Extracted from: Title: TCC - TCM Referral Author: Omayra Bob RN Date: 05/30/16 Referral to [facility] Referral Source: CM Patient Information: Primary Diagnosis: Chest pain / HTN Initial TCM Appointment/Provider: 06/06/16 at 2 PM w/ Glenny Valentine APRN
--- OUTSIDE RECORDS SUMMARY | 2016-08-06 14:09 | XMS REPORT | Referral Summary ---
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 Role Phone No PCP, States Primary Care Physician [phone] Encounter VC Date(s): 09/22/14 - 09/22/14 [facility] [address] [place] [address] [phone] Discharge Diagnosis: Chronic back pain Final: Other chronic pain Final: LUMBAGO Final: TOBACCO USE DISORDER Discharge Disposition: 01-Home or Self Care Attending Physician: Alden Schumacher MD Admitting Physician: Young Bell MD Vital Signs Most recent to 1 oldest [Reference Range]: Blood Pressure 193/108 mmHg [90-140/60-90 mmHg] *HI* (09/22/14 6:52 PM) Problem List Condition Effective Dates Status Health Status Informant Back pain(Confirmed) Active patient HTN Active patient (hypertension)(Confi rmed) Restless leg Active patient syndrome(Confirmed) Tobacco Active patient user(Confirmed) Allergies, Adverse Reactions, Alerts Substance Reaction Severity Status Phenergan Anxiety Mild Active Medications amLODIPine Oral, Daily, 0 Refill(s) Start Date: 09/22/14 Status: Ordered Linzess Oral, Daily, 0 Refill(s) Start Date: 09/22/14 Status: Ordered lisinopril Oral, Daily, 0 Refill(s) Start Date: 09/22/14 Status: Ordered Mirapex Oral, TID, 0 Refill(s) Start Date: 09/22/14 Status: Ordered [place] 10 mg-325 mg oral tablet tabs, Oral, q6hr, 0 Refill(s) Start Date: 09/22/14 Status: Ordered omeprazole Oral, Daily, 0 Refill(s) Start Date: 5/12/15 Status: Ordered traMADol Oral, 0 Refill(s) Start Date: 09/22/14 Status: Ordered Results No data available for this section Immunizations Vaccine Date Refusal Reason influenza virus vaccine, live 04/07/13 Procedures Procedure Date Related Diagnosis Body Site Carpal tunnel release Cholecystectomy Lithotripsy Tubal ligation Social History Social History Type Response Smoking Status Current every day smoker; Type: Cigarettes; Tobacco use per day: 1 Pack Assessment and Plan No data available for this section
--- OUTSIDE RECORDS SUMMARY | 2016-08-06 14:09 | XMS REPORT | Referral Summary ---
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 Phone No PCP, States Primary Care Physician [phone] Encounter VC Date(s): 05/31/15 - 05/31/15 [facility] [address] [place] [address] [phone] Discharge Diagnosis: Constipation Discharge Diagnosis: Abdominal pain Discharge Disposition: 01-Home or Self Care Attending Physician: Lior Robbins JR, MD Admitting Physician: Lior Robbins JR, MD Vital Signs Most recent to 1 oldest [Reference Range]: Temperature Oral 36.7 degC [35.8-37.3 degC] (05/31/15 9:20 PM) Peripheral Pulse 76 bpm Rate [60-100 bpm] (05/31/15 9:20 PM) Respiratory Rate 16 br/min [14-20 br/min] (05/31/15 9:20 PM) Blood Pressure 155/105 mmHg [90-140/60-90 mmHg] *HI* (05/31/15 9:20 PM) SpO2 97 % (05/31/15 9:20 PM) Problem List Condition Effective Dates Status Health Status Informant Back pain(Confirmed) Active patient DDD (degenerative Active patient disc disease), lumbar(Confirmed) Sacral Active patient fracture(Confirmed) HTN Active patient (hypertension)(Confi rmed) Kidney Active patient stones(Confirmed) Restless leg Active patient syndrome(Confirmed) Tobacco Active patient user(Confirmed) Allergies, Adverse Reactions, Alerts Substance Reaction Severity Status Phenergan Anxiety Mild Active Medications amLODIPine Oral, Daily, 0 Refill(s) Start Date: 09/22/14 Status: Ordered Linzess Oral, Daily, 0 Refill(s) Start Date: 09/22/14 Status: Ordered lisinopril Oral, Daily, 0 Refill(s) Start Date: 09/22/14 Status: Ordered Mirapex Oral, TID, 0 Refill(s) Start Date: 09/22/14 Status: Ordered [place] 10 mg-325 mg oral tablet tabs, Oral, q6hr, 0 Refill(s) Start Date: 09/22/14 Status: Ordered omeprazole Oral, Daily, 0 Refill(s) Start Date: 09/22/14 Status: Ordered traMADol Oral, 0 Refill(s) Start Date: 09/22/14 Status: Ordered Results Chemistry Most recent to 1 oldest [Reference Range]: Screen, Negative Urine NPT (05/31/15 9:08 PM) Urinalysis Most recent to 1 oldest [Reference Range]: UA Color Yellow (05/31/15 9:10 PM) UA Appear Clear (05/31/15 9:10 PM) UA pH [5.0-8.0] 6.5 (05/31/15 9:10 PM) UA Leuk Est Negative [Negative] (05/31/15 9:10 PM) UA Nitrite Negative [Negative] (05/31/15 9:10 PM) UA Protein Trace [Negative] *ABN* (05/31/15 9:10 PM) UA Glucose Negative [Negative] (05/31/15 9:10 PM) UA Ketones Trace [Negative] *ABN* (05/31/15 9:10 PM) UA Urobilinogen Negative [<1.0] (05/31/15 9:10 PM) UA Bili [Negative] Negative (05/31/15 9:10 PM) UA Blood [Negative] Negative (05/31/15 9:10 PM) UA Spec Grav 1.036 [1.003-1.030] *HI* (05/31/15 9:10 PM) Type Clean Catch (05/31/15 9:10 PM) Immunizations Vaccine Date Refusal Reason influenza virus vaccine, live 04/07/13 Procedures Procedure Date Related Diagnosis Body Site Carpal tunnel release Cholecystectomy Lithotripsy Tubal ligation Social History Social History Type Response Smoking Status Current every day smoker; Type: Cigarettes; Tobacco use per day: 1 Pack Assessment and Plan No data available for this section
[2016-08-06] MEDS ORDERED: ESTR0.624 PO (14:36)
--- OUTSIDE RECORDS SUMMARY | 2016-08-06 14:42 | XMS REPORT | Continuity of Care Document ---
Author Author [facility] Organization [facility] Address Unknown Phone Unavailable Allergies Active Description [...] Donovan Gonzalez MD Final 724.2 LUMBAGO 08/06/2012 Bhavna KILGORE, Ruiz J F 272.4 HYPERLIPIDEMIA NEC/NOS [...] MD Final 401.9 HYPERTENSION NOS 09/14/2013 Denzel Riacrdo MD Final 724.2 LUMBAGO 09/14/2013 Denzel Ricardo [...] Status Pt. Type Provider Facility Loc./Unit Complaint [id number] 09/14/2013 16:25:00 2013 18:07:00 DIS Emergency Davion KILGORE, [facility] [id number] 04/06/2013 18:45:00 2012 17:45:00 DIS Outpatient Tariq KILGORE, [facility] [address] [id number] 05/04/2012 19:10:00 2011 19:58:00 DIS Emergency Carlos KILGORE, Donovan Schulz [facility] [id number] 03/01/2012 09:54:00 2011 23:59:59 CLS Outpatient Lloyd Grant DO [facility] on [address] S[address] [id number] 02/10/2012 21:23:00 2011 22:30:00 DIS Emergency Fausto Pitts DO [facility]
--- NOTE | 2016-08-06 15:07 | ERPDOC ---
Departure Disposition Decision Date: Aug 06, 2016 Disposition Decision Time: 15:25 (DENILSON MACIAS APRN) Disposition: 01 DISCHARGED HOME, SELF-CARE Impression Impression (DENILSON MACIAS APRN) Impression: Primary Impression: Right otitis media Qualified Codes: H66.001 - Acute suppurative otitis media without spontaneous rupture of ear drum, right ear Severity: Moderate (DENILSON MACIAS APRN) Condition: Stable Seen By: Mid-level only (DENILSON MACIAS APRN) Patient Instructions: Otitis Media (ED) Problems/Meds/Labs Reviewed?: Yes Medications reviewed and manag: Yes (DENILSON MACIAS APRN) Additional Instructions: Take amoxicillin 875 mg twice daily for 10 days. You may take Tylenol with Codeine No. 3, one to 2 tabs every 6 hours as needed for pain. This medication may cause drowsiness so avoid driving, operating heavy machinery or drinking alcohol while taking. You may take ibuprofen [id number] as well for pain. Follow treatment plan. If your symptoms are not improving in next 72 hours following with your PCP for reevaluation. Follow up care ordered?: Yes Mental Status: Alert, Oriented (DENILSON MACIAS APRN) Scripts Acetaminophen with Codeine (Acetaminophen-Cod #3 Tablet) 300-30 Tablet 1-2 TAB PO Q6HPRN Y for PAIN, #20 TAB Prov: DENILSON MACIAS APRN 08/06/16 Amoxicillin (Amoxicillin) 875 Mg Tablet 1 TAB PO Q12H for 10 Days, #20 TAB Prov: DENILSON MACIAS APRN 08/06/16 HPI - EENT General General Chief Complaint: Ear Pain/Injury Stated Complaint: R SIDE JAW/EAR PAIN Time Seen by Provider: 15:07 Source: patient (MACIASDENILSON Parsons APRN) Time Seen by Provider: 14:33 (JELENA PATEL DO) HPI - EENT General Initial Comments 40 YO F presents to ED with right side jaw and ear pain for last several days. Patient denies fevers, chills, rhinorrhea, sinus congestion, drainage from ear or trismus. Patient states that she has no teeth so is not quite sure why her jaw hurts. Pain/Severity Scale: Now: 7/10 Location: ear (R) Prearrival Treatment: over the counter meds (motrin and tylenol) Associated Symptoms: DENIES: change in hearing, cough, drooling, ear drainage, facial pain/swelling, fever, malaise, sinus infection, sore throat, tooth pain, voice change (DENILSON MACIAS POLLUTION CONTROL CHEMIST) Allergies: Coded Allergies: No Known Drug Allergies (Verified Allergy, Unknown, 08/06/16) promethazine (Verified Adverse Reaction, Unknown, AGGITATION, 08/06/16) Past History Past Medical History Metabolic: hypertension Cardiac: DENIES: angina Respiratory: DENIES: asthma GI: GERD, gallbladder disease, ulcers Female: UTI Neurological: DENIES: seizures Musculoskeletal: DENIES: rheumatoid arthritis Psychological: DENIES: depression (DENILSON MACIAS POLLUTION CONTROL CHEMIST) Surgical History General: EGD, colonoscopy Reproductive/: D&C, hysterectomy (DENILSON MACIAS POLLUTION CONTROL CHEMIST) Family History Family PMH: FOUND: other (noncontributory) (DENILSON MACIAS POLLUTION CONTROL CHEMIST) Review of Systems Constitutional Constitutional: DENIES: chills, dizziness, fever, weakness (DENILSON MACIAS POLLUTION CONTROL CHEMIST) Eyes General: DENIES: erythema, exudate Lids/Accessories: DENIES: erythema, swelling (DENILSON MACIAS A POLLUTION CONTROL CHEMIST) ENMT Ears: pain, see HPI, DENIES: drainage, erythema, foreign body Hearing: DENIES: hearing loss Sinuses: DENIES: congestion, rhinorrhea Mouth/Throat: DENIES: sore throat Teeth: missing teeth (all), see HPI, DENIES: bruxism (DYLAN MACIASS A POLLUTION CONTROL CHEMIST) Cardiovascular Cardiac: DENIES: chest pain, murmur Rhythm/Rate: DENIES: palpitations (DYLAN MACIASS A POLLUTION CONTROL CHEMIST) Pulmonary Respiratory: DENIES: cough, dyspnea (DYLAN MACIASS A POLLUTION CONTROL CHEMIST) GI Upper Abdomen: DENIES: nausea, pain, vomiting Lower Abdomen: DENIES: diarrhea, pain (DYLAN MACIASS A POLLUTION CONTROL CHEMIST) General: DENIES: dysuria, pain (DYLAN MACIASS A POLLUTION CONTROL CHEMIST) Musculoskeletal General: DENIES: joint pain, pain, tenderness (DYLAN MACIASS A POLLUTION CONTROL CHEMIST) Integumentary Skin: DENIES: color change, itching, rash (DYLAN MACIASS A POLLUTION CONTROL CHEMIST) Neurological General: DENIES: ataxia, change in strength, numbness, paralysis/paresis, weakness (DYLAN MACIASS A POLLUTION CONTROL CHEMIST) Psychiatric Psychiatric: DENIES: anxiety, depression, nervousness (DENILSON MACIAS APRN) Physical Exam General General Nourishment: well nourished, well developed, adult, obese General Body Habitus: disheveled (DENILSON MACIAS APRN) Vitals and Pain First Documented Vital Signs Date Time Temp Pulse Resp B/P Pulse Ox O2 Delivery O2 Flow Rate FiO2 08/06/16 14:05 97.6 79 16 179/97 99 Room Air (JELENA PATEL DO) Vitals and Pain Weight: Kilograms: 109.400 Height (feet): 5 Height (inches): 9.00 Triage Pain Scale: (DENILSON MACIAS APRN) Eyes (brief) Eyes Brief: found: EOMI, PERRL (DENILSON MACIAS APRN) ENMT Ear/Canal/Mastiod: FOUND: cerumen, NOT FOUND: blood, canal erythema, discharge , pain with movement Tympanic Membrane #1: Location: Right Tympanic Membrane: FOUND Erythema, NOT FOUND Bulging, NOT FOUND Fluid, NOT FOUND Normal, NOT FOUND Retracted Hearing: FOUND: normal acuity Tympanic Membrane #2: Location: Left Tympanic Membrane: FOUND Retracted, NOT FOUND Bulging, NOT FOUND Erythema, NOT FOUND Fluid Nose: NOT FOUND: deformity Mouth/Dental/Tongue: FOUND: missing teeth (all), mucosa moist, NOT FOUND: gingival edema, gingival erosion, gingival erythema, mucosa erythema, mucosa swelling Pharynx: NOT FOUND: cobblestoning, displacement, exudates, posterior drainage, uvular deviation Jaw: NOT FOUND: TMJ clicking, TMJ locking, tenderness, trismus Head: symmetric (DENILSON MACIAS APRN) Neck (brief) Neck: FOUND: trachea midline, NOT FOUND: adenopathy, tenderness, thyromegaly ( DENILSON MACIAS POLLUTION CONTROL CHEMIST) Respiratory (brief) Respiratory: FOUND: clear all monroy, equal bilaterally, symmetrical (DENILSON MACIAS POLLUTION CONTROL CHEMIST) Cardiovascular (brief) Cardiac: FOUND: regular rate, regular rhythm (DENILSON MACIAS APRN) Musculoskeletal (brief) Musculoskeletal Brief: NOT FOUND: deformity, loss of motion (DENILSON MACIAS APRN) Integumentary (brief) Integumentary Brief: FOUND: dry, pink, warm (DENILSON MACIAS POLLUTION CONTROL CHEMIST) Neurologic (brief) Neurological Brief: FOUND: CN w/o gross def to obs, gait w/o gross def to obs, motor-no gross deficits, sensory-no gross deficits (DENILSON MACIAS APRN) Psychiatric (brief) Psychiatric Brief: FOUND: alert, normal affect, oriented (DENILSON MACIAS APRN ) Differential Diagnoses Considering: Eustachian Tube Dysfuncti, Mastoiditis, Pharyngitis, Sinusitis, Other (Otitis Media, Otitis externa, TMJ disorder) (DENILSON MACIAS APRN) Progress Progress Progress Discussed exam findings with patient. Will treat patient with amoxicillin 875mg twice a day for 10 days. Patient verbalized understanding of treatment plan, follow-up with PCP and return precautions. (DENILSON MACIAS APRN) DENILSON MACIAS APRN Aug 06, 2016 15:07 JELENA PATEL DO Aug 09, 2016 06:31
[2016-08-06] MEDS ORDERED: AMOX875T2 PO (15:30)
[2016-08-06] MEDS ORDERED: ACET1TAB25 PO (15:30)
[2016-08-06 15:40] VITALS: BP 185/84; PULSE 75; RESP 16; TEMP 97.6; O2SAT 97
--- NOTE | 2016-08-06 15:41 | NUR ---
DISMISSAL DISMISSAL INSTRUCTIONS WITH RX X2. NO FURTHER QUESTIONS AT THIS TIME. PT LEFT DEPARTMENT AMBUALTORY WITH FAMILY
== END 2016-08-06 15:40 | disposition home or self-care (01) ==
LOC: ED 14:02
DX: H66.001 Acute suppurative otitis media without spontaneous rupture of ear drum, right ear (principal)